=== PATIENT | female | born 1985 | race African-American/Black ===

== ENCOUNTER 2018-10-14 10:53 | Emergency (ER) | payer MEDICAID ==
[~2018-10-14] VITALS: Ht 162.6 cm; Wt 70.0 kg
[2018-10-14 10:56] VITALS: BP 128/78
[2018-10-14] MEDS ORDERED: BACITRACIN ZINC OINT UDPKT TOP ONE (11:30)
[2018-10-14] MEDS ORDERED: TETANUS, DIPHTHERIA, PERTUSSIS VAC/PF 0.5ML (>7YR OLD) IM ONE (11:30)
[2018-10-14] MEDS ORDERED: IBUPROFEN 800MG TABLET PO ONE (11:30)
[2018-10-14] MEDS ORDERED: LIDOCAINE HCL/PF 1% 10 MG/ML 5ML VIAL IJ ONE (11:30)
== END 2018-10-14 15:59 | disposition home or self-care (01) ==
LOC: ER 10:53
DX: S91.332A Puncture wound without foreign body, left foot, initial encounter (principal); J45.909 Unspecified asthma, uncomplicated; W25.XXXA Contact with sharp glass, initial encounter; Y93.89 Activity, other specified; Y92.89 Other specified places as the place of occurrence of the external cause; Y99.8 Other external cause status
CPT/HCPCS: 12001; 73630; 81025; 90471; 90715; 99283; J3490

== ENCOUNTER 2019-03-27 16:47 | Emergency (ER) | payer MEDICAID ==
[~2019-03-27] VITALS: Ht 167.6 cm; Wt 62.0 kg
[2019-03-27] MEDS ORDERED: KETOROLAC 60MG/2ML VIAL IM STA (20:51)
[2019-03-28 00:21] LABS: BASOPHILS % 0.9 % (0.0-2.0); EOSINOPHILS % 1.8 % (0.0-5.0); HEMATOCRIT. 32.3 % (36.0-48.0); HEMOGLOBIN. 11.2 g/dL (12.0-16.0); LYMPHOCYTES % 23.6 % (20.0-50.0); MEAN CORPUSCULAR HEMOGLOBIN 32.4 pg (28.0-32.0); MEAN CORPUSCULAR VOLUME 93.8 fL (81.0-99.0); MEAN PLATELET VOLUME 8.5 fl (7.4-10.4); NEUTROPHILS % 65.7 % (40.0-76.0); PLATELET 350 x1000/uL (130-400); RED BLOOD CELL COUNT 3.45 mill/uL (4.2-5.4); RED CELL DISTRIBUTION WIDTH 13.2 % (11.6-14.6)
[2019-03-28 00:28] LABS: CHLORIDE 106 mEq/L (98-107)
[2019-03-28 00:45] LABS: PARTIAL THROMBOPLASTIN TIME 22.8 sec (23.4-31.0); PROTHROMBIN TIME 10.3 sec (9.6-11.0)
[2019-03-28] MEDS ORDERED: KETOROLAC 15MG/ML VIAL IV ONE (06:45)
[2019-03-28] MEDS ORDERED: ONDANSETRON 4MG ODT PO ONE (09:30)
[2019-03-28] MEDS ORDERED: MORPHINE SULFATE 4 MG/ML CPJ (NOT FOR IM USE) IV ONE (09:30)
[2019-03-28 14:52] VITALS: BP 130/86
== END 2019-03-28 15:02 | disposition short-term general hospital (02) ==
LOC: ER 16:47
DX: S82.141A Displaced bicondylar fracture of right tibia, initial encounter for closed fracture (principal); S82.401A Unspecified fracture of shaft of right fibula, initial encounter for closed fracture; W18.39XA Other fall on same level, initial encounter; Y93.89 Activity, other specified; Y92.9 Unspecified place or not applicable
CPT/HCPCS: 36415; 73560; 73590; 80053; 85025; 85610; 85730; 96372; 96374; 96375; 99285; J1885; J2270; Q0162

== ENCOUNTER 2019-05-09 20:41 | Emergency (ER) | payer MEDICAID ==
[~2019-05-09] VITALS: Ht 170.2 cm; Wt 59.0 kg
[2019-05-09 23:16] VITALS: BP 129/95
== END 2019-05-09 23:16 | disposition home or self-care (01) ==
LOC: ER 20:41
DX: Z48.00 Encounter for change or removal of nonsurgical wound dressing (principal); F17.200 Nicotine dependence, unspecified, uncomplicated
CPT/HCPCS: 99283

== ENCOUNTER 2021-02-22 23:23 | Inpatient (IN) | payer MEDICAID ==
[~2021-02-22] VITALS: Ht 170.2 cm; Wt 60.3 kg
[~2021-02-22 23:23] MED LIST: CEPH500C2 MT; IBUP-2029 MT
[2021-02-23] MEDS ORDERED: VANCOMYCIN 1 G PREMIX 200 ML IV SCH
[2021-02-23] MEDS ORDERED: ONDANSETRON HCL 4MG/2ML INJ IV ONE
[2021-02-23] MEDS ORDERED: MORPHINE SULFATE 4 MG/ML CPJ (NOT FOR IM USE) IV ONE
[2021-02-23] MEDS ORDERED: CEFTRIAXONE 2 G PREMIX 50 ML IV ONE
[2021-02-23 00:45] LABS: CLARITY URINE CLEAR (CLEAR); COLOR URINE YELLOW (YELLOW); KETONES URINE NEGATIVE (NEGATIVE); LEUKOCYTE ESTERASE URINE NEGATIVE (NEGATIVE); NITRITE URINE NEGATIVE (NEGATIVE); OCCULT BLOOD URINE 2+ (NEGATIVE); PH URINE 5.5 (4.5-8.0); PROTEIN URINE NEGATIVE (NEGATIVE); SPECIFIC GRAVITY URINE 1.013 (1.005-1.030)
[2021-02-23 00:45] LABS: BASOPHILS % 0.8 % (0.0-2.0); EOSINOPHILS % 0.2 % (0.0-5.0); HEMATOCRIT. 31.8 % (36.0-48.0); HEMOGLOBIN. 11.1 g/dL (12.0-16.0); LYMPHOCYTES % 24.5 % (20.0-50.0); MEAN CORPUSCULAR HEMOGLOBIN 29.5 pg (28.0-32.0); MEAN CORPUSCULAR VOLUME 84.7 fL (81.0-99.0); MEAN PLATELET VOLUME 7.6 fl (7.4-10.4); MONOCYTES % 13.9 % (2.0-8.0); NEUTROPHILS % 60.6 % (40.0-76.0); PLATELET 550 x1000/uL (130-400); RED BLOOD CELL COUNT 3.75 mill/uL (4.2-5.4); RED CELL DISTRIBUTION WIDTH 14.5 % (11.6-14.6)
[2021-02-23 00:51] LABS: HCG SCREEN NEGATIVE
[2021-02-23 00:53] LABS: CHLORIDE 101 mEq/L (98-107)
[2021-02-23 01:00] LABS: *BARBITURATES SCREEN URINE NEGATIVE (NEGATIVE); *BENZODIAZEPINES SCREEN URINE NEGATIVE (NEGATIVE)
[2021-02-23 01:01] LABS: *AMPHETAMINES SCREEN URINE PRESUMTIVE POSITIVE (NEGATIVE); *COCAINE SCREEN URINE NEGATIVE (NEGATIVE); CANNABINOID URINE SCREEN NEGATIVE (NEGATIVE); METHADONE URINE SCREEN NEGATIVE (NEGATIVE); OPIATES URINE SCREEN NEGATIVE (NEGATIVE); PHENCYCLIDINE URINE SCREEN PRESUMTIVE POSITIVE (NEGATIVE)
[2021-02-23] MEDS ORDERED: SODIUM CHLORIDE 0.9% 1,000 ML IV ONE ×2 (01:30)
[2021-02-23] MEDS ORDERED: AMLODIPINE 5MG TABLET PO ONE (01:45)
[2021-02-23] MEDS ORDERED: ACETAMINOPHEN 325MG TABLET PO PRN (09:30)
[2021-02-23] MEDS ORDERED: PIPERACILLIN/TAZOBACTAM 3.375 G in DEXTROSE 5% WATER 50 ML IV SCH (09:30)
[2021-02-23] MEDS ORDERED: ONDANSETRON HCL 4MG/2ML INJ IV PRN (09:30)
[2021-02-23] MEDS: PIPERACILLIN/TAZ 3.375G PREMIX 50 ML IV SCH ×2 (10:27→15:54)
[2021-02-23] MEDS: HYDROCODONE/ACETAMINOPHEN 10/325MG TABLET PO PRN ×2 (10:31→15:54)
[2021-02-23] MEDS ORDERED: VANCOMYCIN 1,250 MG in DEXT 5% WATER 250 ML IV SCH (12:00)
[2021-02-23 20:00] VITALS: BP 138/85
[2021-02-23 20:00] LABS: PROTHROMBIN TIME 10.5 sec (9.6-11.0)
[2021-02-23] MEDS ORDERED: TRAZODONE HCL 50MG TABLET PO SCH (20:30)
[2021-02-23] MEDS: QUETIAPINE FUMARATE 50MG TABLET PO SCH (21:17)
[2021-02-23] MEDS ORDERED: VANCOMYCIN 750 MG PREMIX 150 ML IV SCH (23:00)
[2021-02-24] MEDS: PIPERACILLIN/TAZOBACTAM 3.375G in DEXT 5% WATER 50ML IV SCH ×5 (01:04→22:36)
[2021-02-24 01:50] VITALS: BP 138/85
[2021-02-24] MEDS: VANCOMYCIN 750 MG PREMIX 150 ML IV SCH ×3 (03:00→18:17)
[2021-02-24 04:00] VITALS: BP 136/98
[2021-02-24 08:00] VITALS: BP 119/74
[2021-02-24] MEDS: QUETIAPINE FUMARATE 50MG TABLET PO SCH ×2 (09:51→16:57)
[2021-02-24 12:00] VITALS: BP 114/65
[2021-02-24 15:56] LABS: BASOPHILS % 0.7 % (0.0-2.0); EOSINOPHILS % 2.3 % (0.0-5.0); HEMATOCRIT. 31.5 % (36.0-48.0); HEMOGLOBIN. 11.2 g/dL (12.0-16.0); LYMPHOCYTES % 26.6 % (20.0-50.0); MEAN CORPUSCULAR HEMOGLOBIN 30.7 pg (28.0-32.0); MEAN CORPUSCULAR VOLUME 86.3 fL (81.0-99.0); MEAN PLATELET VOLUME 7.4 fl (7.4-10.4); MONOCYTES % 10.7 % (2.0-8.0); NEUTROPHILS % 59.7 % (40.0-76.0); PLATELET 474 x1000/uL (130-400); RED BLOOD CELL COUNT 3.64 mill/uL (4.2-5.4); RED CELL DISTRIBUTION WIDTH 14.8 % (11.6-14.6)
[2021-02-24 16:15] LABS: CHLORIDE 104 mEq/L (98-107)
[2021-02-24] MEDS ORDERED: NALOXONE HCL 0.4MG/ML VIAL IV PRN (18:45)
[2021-02-24] MEDS ORDERED: IOHEXOL-300 100 ML BOTTLE ONE (19:06)
[2021-02-24 20:00] VITALS: BP 99/59
[2021-02-24] MEDS: HYDROCODONE/ACETAMINOPHEN 10/325MG TABLET PO PRN (22:33)
[2021-02-25] VITALS: BP 140/84
[2021-02-25] MEDS: VANCOMYCIN 750 MG PREMIX 150 ML IV SCH ×3 (03:00→19:00)
[2021-02-25 04:08] LABS: NEISSERIA GONORRHOEAE NAA Negative (Negative)
[2021-02-25] MEDS: PIPERACILLIN/TAZOBACTAM 3.375G in DEXT 5% WATER 50ML IV SCH ×4 (05:30→23:30)
[2021-02-25 06:00] VITALS: BP 124/74
[2021-02-25] MEDS: HYDROCODONE/ACETAMINOPHEN 10/325MG TABLET PO PRN ×3 (06:52→22:10)
[2021-02-25] MEDS: QUETIAPINE FUMARATE 50MG TABLET PO SCH ×2 (09:07→17:20)
[2021-02-25 20:00] VITALS: BP 113/68
[2021-02-26] VITALS: BP 119/69
[2021-02-26] MEDS: VANCOMYCIN 750 MG PREMIX 150 ML IV SCH (03:00)
[2021-02-26 04:00] VITALS: BP 123/71
[2021-02-26] MEDS: HYDROCODONE/ACETAMINOPHEN 10/325MG TABLET PO PRN (04:19)
[2021-02-26] MEDS: PIPERACILLIN/TAZOBACTAM 3.375G in DEXT 5% WATER 50ML IV SCH (05:30)
[2021-02-26 06:13] LABS: CHLORIDE 103 mEq/L (98-107)
[2021-02-26 08:00] VITALS: BP 77/37
[2021-02-26] MEDS: QUETIAPINE FUMARATE 50MG TABLET PO SCH (09:00)
[2021-02-26 09:30] VITALS: BP 118/76
== END 2021-02-26 10:30 | disposition left against medical advice (07) | DRG 349 ==
LOC: ER 23:23 → 6EST 02-23 01:54 → EDBEDREQSVC 02-23 12:49 → CANRESERV 02-23 12:53 → ENRESERV 02-23 12:53
PROVIDERS: ADMIT Internal Medicine; ATTEND Internal Medicine
DX: T84.622A Infection and inflammatory reaction due to internal fixation device of right tibia, initial encounter (principal); E87.1 Hypo-osmolality and hyponatremia; L03.115 Cellulitis of right lower limb; M86.68 Other chronic osteomyelitis, other site; M25.461 Effusion, right knee; F17.210 Nicotine dependence, cigarettes, uncomplicated; D64.9 Anemia, unspecified; I10 Essential (primary) hypertension; F15.90 Other stimulant use, unspecified, uncomplicated; R40.0 Somnolence; Z79.1 Long term (current) use of non-steroidal anti-inflammatories (NSAID); Z79.2 Long term (current) use of antibiotics; Z71.51 Drug abuse counseling and surveillance of drug abuser; Y79.8 Miscellaneous orthopedic devices associated with adverse incidents, not elsewhere classified; Y92.89 Other specified places as the place of occurrence of the external cause; F19.10 Other psychoactive substance abuse, uncomplicated
CPT/HCPCS: 36415; 73560; 73700; 80048; 80053; 80202; 80305; 81003; 83605; 83880; 84145; 84703; 85025; 86140; 87491; 87591; 93005; 99285; J0696; J2270; J2405; J2543; J3370; J7030; J7040; J7060; Q9967

== ENCOUNTER 2021-03-12 04:13 | Emergency (ER) | payer MEDICAID ==
[~2021-03-12] VITALS: Ht 167.6 cm; Wt 57.0 kg
[2021-03-12 04:19] VITALS: BP 145/97
== END 2021-03-12 07:34 | disposition left against medical advice (07) ==
LOC: ER 04:13
DX: M25.562 Pain in left knee (principal); Z53.21 Procedure and treatment not carried out due to patient leaving prior to being seen by health care provider

== ENCOUNTER 2022-01-17 23:31 | Emergency (ER) | payer MEDICAID ==
[~2022-01-17] VITALS: Ht 165.1 cm; Wt 55.0 kg
[2022-01-18] MEDS ORDERED: HYDROCODONE/ACETAMINOPHEN 10/325MG TABLET PO ONE (01:45)
[2022-01-18] MEDS ORDERED: HYDR-4001 MT (01:50)
[2022-01-18] MEDS ORDERED: CLIN-194 MT (02:57)
[2022-01-18] MEDS ORDERED: CIPR500T5 MT (02:57)
[2022-01-18 03:00] VITALS: BP 159/88
== END 2022-01-18 04:22 | disposition home or self-care (01) ==
LOC: ER 23:31
DX: S89.81XD Other specified injuries of right lower leg, subsequent encounter (principal); M25.561 Pain in right knee; G89.29 Other chronic pain; M25.571 Pain in right ankle and joints of right foot; R07.81 Pleurodynia; J45.909 Unspecified asthma, uncomplicated; F32.9 Major depressive disorder, single episode, unspecified; I10 Essential (primary) hypertension; Y08.89XA Assault by other specified means, initial encounter; X58.XXXD Exposure to other specified factors, subsequent encounter; Y93.89 Activity, other specified; Y92.9 Unspecified place or not applicable
CPT/HCPCS: 71100; 73560; 73610; 99284

== ENCOUNTER 2022-02-09 11:12 | Emergency (ER) | payer MEDICAID ==
[~2022-02-09] VITALS: Ht 170.2 cm; Wt 69.0 kg
[~2022-02-09 11:12] MED LIST changes: +CIPR500T5 MT; +CLIN-194 MT; +HYDR-4001 MT
[2022-02-09 11:14] VITALS: BP 121/80
[2022-02-09 12:38] LABS: EOSINOPHILS % 1.8 % (0.0-5.0); HEMATOCRIT. 37.4 % (36.0-48.0); HEMOGLOBIN. 12.5 g/dL (12.0-16.0); LYMPHOCYTES % 38.8 % (20.0-50.0); MEAN CORPUSCULAR HEMOGLOBIN 29.4 pg (28.0-32.0); MEAN CORPUSCULAR VOLUME 87.7 fL (81.0-99.0); MEAN PLATELET VOLUME 7.1 fl (7.4-10.4); MONOCYTES % 10.2 % (2.0-8.0); NEUTROPHILS % 48.2 % (40.0-76.0); PLATELET 754 x1000/uL (130-400); RED BLOOD CELL COUNT 4.26 mill/uL (4.2-5.4); RED CELL DISTRIBUTION WIDTH 14.1 % (11.6-14.6)
[2022-02-09 12:44] LABS: CHLORIDE 101 mEq/L (98-107)
[2022-02-09 12:52] LABS: ETHANOL BLOOD < 10 mg/dL
[2022-02-09] MEDS ORDERED: CLINDAMYCIN HCL 150MG CAPSULE PO SCH (18:00)
== END 2022-02-09 16:32 | disposition home or self-care (01) ==
LOC: ER 11:12
DX: M25.561 Pain in right knee (principal); L03.115 Cellulitis of right lower limb; J45.909 Unspecified asthma, uncomplicated; F31.9 Bipolar disorder, unspecified; I10 Essential (primary) hypertension; Z98.890 Other specified postprocedural states; Z79.899 Other long term (current) drug therapy
CPT/HCPCS: 36415; 73560; 80053; 80320; 85025; 99284; G0480